=== PATIENT | female | born 1995 | race Caucasian/White ===

== ENCOUNTER 2021-10-20 11:12 | Emergency (ER) | payer MEDICAID, SELFPAY ==
[2021-10-20 11:16] VITALS: BP 149/91; PULSE 66; RESP 16; TEMP 36.2; O2SAT 97; BMI 48.5
--- NOTE | 2021-10-20 11:31 | ED.GENADULT ---
HPI - General Adult General Chief complaint: Animal Bite Stated complaint: Dog bite on lip Time Seen by Provider: 10/20/21 11:30 Source: patient Mode of arrival: ambulatory Limitations: no limitations History of Present Illness HPI narrative: Patient is a 26 year old female presenting to the emergency department today after being bit by a dog. Patient states that the dog is up to date on all of it's shots. Patient states that she is not up to date on her tetanus shot. Patient states that she was bit on the lower lip and the left eyebrow. Patient denies any dizziness, lightheadedness, abdominal pain, nausea, vomiting, fever, chills, blurry vision, double vision, loss of vision, chest pain, difficulty breathing, shortness of breath, back pain, night sweats, pain with urination, increased urinary frequency, increased urinary urgency, blood in her urine or stool, syncope or a near syncopal episode, bowel incontinence, bladder incontinence, bowel retention, bladder retention, or any other complaints at this time. Onset (ago): hour(s) Location: face Radiation: non-radiation Severity: mild Severity scale (1-10): 1 Relieving factors: none Exacerbating factors: none Associated symptoms: denies other symptoms Treatments prior to arrival: none Related Data Previous Rx's Medication Instructions Recorded doxycycline hyclate 100 mg tablet 100 mg PO BID 7 days #14 tabs 10/20/21 Allergies Allergy/AdvReac Type Severity Reaction Status Date / Time cat dander [CAT] Allergy Unknown ITCHY Verified 10/20/21 11:18 EYES/THROAT/RASH honey [HONEY] Allergy Unknown ITCHY Verified 10/20/21 11:18 THROAT SEASONAL ALLERGIES Allergy Unknown CONGESTION/RUNNY Uncoded 10/27/19 16:32 NOSE Review of Systems Constitutional: Constitutional: Reports no additional constitutional complaints, Denies chills, Denies fever(s) and Denies night sweats Eyes: Eyes: Reports no additional eye complaints, Denies blurry vision, Denies change in vision, Denies diplopia, Denies eye discharge, Denies loss of vision and Denies eye pain ENT: Denies dizziness Comments: lower lip injury, left eyebrow injury Cardiovascular: Cardiovascular: Reports no additional cardiovascular complaints, Denies chest pain, Denies lightheadedness, Denies Loss of Consciousness and Denies dyspnea Respiratory: Respiratory: Reports no additional respiratory complaints and Denies dyspnea Gastrointestinal: Gastrointestinal: Reports no additional gastrointestinal complaints, Denies abdominal pain, Denies melena, Denies hematochezia, Denies change in bowel habits and Denies change in stool character Genitourinary: Genitourinary: Denies hematuria, Denies urinary frequency, Denies dysuria, Denies urinary incontinence, Denies urinary hesitancy and Denies urinary urgency Musculoskeletal: Musculoskeletal: Reports no additional musculoskeletal complaints, Denies numbness and Denies tingling Neurologic: Denies dizziness, Denies loss of vision, Denies numbness and Denies tingling Psychiatric: Psychiatric: Reports no additional psychiatric complaints Endocrine: Endocrine: Reports no additional endocrine complaints Hematologic/Lymphatic: Hematologic/Lymphatic: Reports no additional hematologic/lymphatic complaints Allergic/Immunologic: Allergic/Immunologic: Reports no additional allergic/immunologic complaints PMFSH Past Medical History Attestation statement: The following information was validated with the patient. Source: old records reviewed Social History Social History Advance Directives: Yes Advance Directives Information Provided: Yes Advance Directives on File: No Physical Exam ED Vital Signs: Vital Signs - 24 hr 10/20/21 11:16 Temperature 97.1 F Pulse Rate 66 Respiratory Rate 16 Blood Pressure 149/91 H Pulse Oximetry 97 Oxygen Delivery Method Room Air BMI result Body Mass Index 48.5 Const General: cooperative, no acute distress, alert and awake Nutritional Appearance: well nourished Orientation/consciousness: patient oriented x3 Limitations: no limitations HENMT Head: Yes normal to inspection and Yes atraumatic Ears: hearing grossly normal bilaterally and external ears normal General nose exam: Normal external nose present, no nasal discharge noted and no epistaxis Face and sinus: Yes normal facial exam, No abrasion and No laceration Mouth: Normal oral and palatal mucosa present, no drooling and no muffled voice Eyes General: appearance normal, both eyes and all related structures Periorbital: periorbital findings normal Eyelids: Yes eyelids normal Conjunctivae: conjunctivae normal Pupils: Equal, round and reactive pupils present EOM: EOMs intact bilaterally Neck Neck: Yes normal visual inspection, Yes full ROM and Yes no lymphadenopathy Chest Chest palpation & inspection: normal inspection of the chest Resp Effort & Inspection: normal respiratory effort and able to speak in complete sentences Auscultation: clear to auscultation bilaterally Cardio Rate: regular rate Rhythm: regular rhythm GI Inspection: Yes normal to inspection Skin Other: very small laceration to the right side of the lower lip that does go through to the inner lip, no gaping area, small abrasion to left lateral eyebrow Neuro General: patient oriented x3 and moves all extremities Cranial nerves: Yes Equal, round and reactive pupils present Cognition (Neuro): normal cognition Motor exam (neuro): 5/5 motor strength present throughout Sensory Exam: Normal double simultaneous stimulation for sensation Coordination: [id number] test normal Extrem General: Yes normal to inspection, Yes full ROM and Yes capillary refill normal Psych Appearance: grossly normal Mental Status: mental status grossly normal Affect: normal affect Attitude: cooperative Thought process: Normal thought process present Thought content: Normal thought content present Insight: Good insight present (Psych) Medical Decision Making MDM Narrative Medical decision making narrative: Patient is a 26 year old female presenting to the emergency department today with a dog bite. Patient's physical exam showed a very small through puncture to the right lower lip with no gaping areas, and a small abrasion to the left eyebrow. I explained my physical exam findings to the patient. I answered all questions asked by the patient. Patient received a tetanus booster. I stressed the importance of the patient taking her medication as prescribed. I stressed the importance of the patient following up with her primary care provider. I stressed the importance of the patient returning to the emergency department immediately if her symptoms were to worsen or if she were to develop any dizziness, shortness of breath, difficulty breathing, chest pain, blurry vision, loss of vision, nausea, vomiting, abdominal pain, fever, chills, back pain, or any other complaints. Patient verbalized agreement and understanding with this treatment plan and discharge. Medical Records Medical records reviewed: Yes I reviewed the patient's medical records. Discharge Plan Discharge Clinical Impression: Dog bite Patient Disposition: Home, Self-Care Instructions: Animal Bite (ED) Additional Instructions: Follow up with your primary care provider. Return to the emergency department immediately if your symptoms worsen or if you develop any dizziness, shortness of breath, difficulty breathing, chest pain, blurry vision, loss of vision, nausea, vomiting, abdominal pain, fever, chills, back pain, or any other complaints. Prescriptions: New doxycycline hyclate 100 mg tablet 100 mg PO BID 7 Days Qty: 14 0RF Referrals: [facility] [place] Family Medicine [Provider Group] (Call to establish and follow up with a primary care provider. If you already have a primary care provider, please follow up with them. ) [facility] Primary Care, [facility] [Provider Group] (Call to establish and follow up with a primary care provider. If you already have a primary care provider, please follow up with them. ) [facility] (Call to establish and follow up with a primary care provider. If you already have a primary care provider, please follow up with them. ) [facility] [Physician] - (Call to establish and follow up with a primary care provider. If you already have a primary care provider, please follow up with them. ) Interventions: ED Discharge Assessment Last Done: 10/20/21 12:03 Print Language: Ukrainian
[2021-10-20] MEDS: Diphth,Pertus(ACell),Tet Adult 0.5 ML SYRINGE IM (11:46)
== END 2021-10-20 12:05 | disposition home or self-care (01) ==
PROVIDERS: Emergency Provider Emergency Medicine
DX: S00.571A Other superficial bite of lip, initial encounter (principal); S00.81XA Abrasion of other part of head, initial encounter; R51.9 Headache, unspecified; W54.0XXA Bitten by dog, initial encounter; Y93.9 Activity, unspecified; Y92.9 Unspecified place or not applicable; Y99.9 Unspecified external cause status
CPT/HCPCS: 90471; 90715; 99283; 99284

== ENCOUNTER 2024-01-14 14:54 | Emergency (ER) | payer OTHER, SELFPAY ==
--- NOTE | ~2024-01-14 | XR_ITS ---
EXAMINATION: XR LUMBOSACRAL SPINE CLINICAL INFORMATION: midline lumbar pain COMPARISON: None available. TECHNIQUE: Three views of the lumbosacral spine. FINDINGS: There are 5 nonrib-bearing lumbar vertebrae. No acute fracture. Spinal alignment is anatomic. Vertebral body heights are preserved. Intervertebral disc space heights are preserved. Paraspinal soft tissue is normal in appearance. Sacroiliac joints are intact. XR/XR lumbar spine 2-3V IMPRESSION: No acute osseous lumbar spine abnormality. No significant degenerative disease. Electronically signed by: Lalito Munson DO 01/14/2024 05:24 PM [facility] [place]
[2024-01-14 15:13] VITALS: BP 151/100; PULSE 85; RESP 18; TEMP 37.2; O2SAT 95; BMI 46.1
--- NOTE | 2024-01-14 15:17 | ED_ITS ---
HPI - Back Pain/Injury General Chief Complaint: Back Pain/Injury Stated Complaint: Lower back pain Time Seen by Provider: 01/14/24 19:40 Source: patient Mode of arrival: ambulatory Limitations: no limitations History of Present Illness ED Provider: Candie Warren NP HPI Narrative: Patient is a 28-year-old female who presents emergency department for evaluation. She reports that she awoke this morning with slight discomfort to her mid lower back that was radiating towards the sides. She drove to work and she felt some increase in her pain. While sitting down at work for a prolonged. She felt her pain was getting worse. She ultimately went home and laid down she took an aspirin and applied a heating pad but continued to have progression of her pain. Denies recent precipitating injury, fevers, chills, burning with micturition, urinary frequency/urgency/hesitancy, bladder or bowel dysfunction, numbness or tingling of the perineum or bilateral legs. Denies any recent surgical procedures, any known immune compromising conditions, personal history of cancer, or IV drug usage. She denies possibility for . MD elicited complaint: back pain Related Data Previous Rx's ?Medication ?Instructions ?Recorded doxycycline hyclate 100 mg tablet 100 mg PO BID 7 days #14 tabs 10/20/21 cyclobenzaprine 5 mg tablet 5 mg PO TID PRN muscle spasm #14 01/14/24 tabs ibuprofen 600 mg tablet 600 mg PO Q8H PRN pain #30 tabs 01/14/24 Allergies Allergy/AdvReac Type Severity Reaction Status Date / Time cat dander [CAT] Allergy Unknown ITCHY Verified 01/14/24 15:14 EYES/THROAT/RASH honey [HONEY] Allergy Unknown ITCHY Verified 01/14/24 15:14 THROAT SEASONAL ALLERGIES Allergy Unknown CONGESTION/RUNNY Uncoded 10/27/19 16:32 NOSE Review of Systems Review of Systems: Yes all other systems are reviewed and are negative PMFSH Past Medical History Attestation statement: The following information was validated with the patient. Source: old records reviewed Social History Social History Smoked in Last 30 Days: No Use of substances other than those prescribed or required for medical reasons: No Advance Directives: No Advance Directives Information Provided: No Do you have a plan to hurt others: No Plan Patient : No Physical Exam Vital Signs: Vital Signs: Last Vital Signs Temp 98.6 F 01/14/24 21:34 Pulse 85 01/14/24 21:34 Resp 16 01/14/24 21:34 BP 123/79 01/14/24 21:34 Pulse Ox 97 01/14/24 21:34 O2 Del Method Room Air 01/14/24 21:34 BMI result Body Mass Index 46.1 Appearance: Alert.?Oriented to person, place and time. No acute distress.?Normal affect. Eyes: Pupils equal, round and reactive to light.? ENT: Pharynx normal.?? Neck: Normal inspection.? Neck supple.?? CVS: Heart sounds normal. Normal heart rate and rhythm.? Pulses normal; bilateral radial pulses 2+, bilateral posterior tibial/dorsalis pedis pulses 2+.? Respiratory: No respiratory distress.? Lung sounds clear to auscultation bilaterally?? Abdomen: Soft and non-tender. Normoactive bowel sounds. No pulsatile mass.?? Skin: Skin warm and dry.? Normal skin color.? Normal skin turgor.?? Extremities: No lower extremity edema.? No calf ttp? Back: + mild paraspinal muscular tenderness from lumbar region to coccyx. No CVA tenderness. No midline spinal tenderness, step-off's, or deformity. Full ROM intact in bilateral lower extremities. Straight leg test negative on right; Straight leg test negative on left. No rashes, lesions, areas of induration or fluctuance, or signs of infection noted., Neuro: Moves all extremities spontaneously. 5/5 strength in hip extension/flexion, abduction, adduction. Sensation to light touch intact bilaterally. Patellar and Achilles reflex 2+ bilaterally. No ataxia, gait normal and steady.. No focal neuro deficits. Course Course Course Narrative: This is a Rapid Medical Examination (RME) performed by Bob Sewell PA-C in triage. Full HPI, ROS, assessment and treatment plan per primary provider in the Main ED. 28 yo female here for eval of mid lumbar spine pain since waking this morning. initially noted a soreness on waking which worsened when she went to sit in her car. denies urinary symptoms. LMP 1 mo ago - cannot recall the exact date. denies blunt injury or trauma. denies saddle anesthesia, bowel or bladder incontinence or retention. + no midline or paraspinal muscle tenderness. standing in triage, does not wish to sit d/t pain. no CVAT Plan: UA, u preg, xr Medications Administered Discontinued Medications Generic Name Dose Route Start Last Admin Trade Name Viviana PRN Reason Stop Dose Admin Ketorolac Tromethamine 15 mg 01/14/24 20:47 01/14/24 20:53 Ketorolac Tromethamine 15 Mg/Ml Vial IM 01/14/24 20:48 15 mg ONCE ONE Administration Medical Decision Making Medical Decision Making [facility] Narrative: Patient is a 28-year-old female who presents emergency department for evaluation of atraumatic back pain that exacerbates with prolonged sitting in particular movements. No precipitating injury. She is overall well-appearing nontoxic and afebrile. Has no midline tenderness upon palpation. XR was obtained prior to my assumption of care no evidence of acute osseous abnormality. At this time suspect that Pain is most consistent with muscular pain, although cannot completely exclude herniated disc. On neurological exam there are no deficits. Exam findings not consistent with cauda equina syndrome. No recent fevers, unintentional weight loss, history of IVDA, high-risk past medical history, immunosuppression, recent surgery or lumbar puncture to suggest spinal infection, epidural abscess, malignancy. Not consistent with AAA or dissection. No genitourinary symptoms, afebrile, no CVA tenderness, unlikely urinary tract infection, pyelonephritis, renal colic. No history of nephrolithiasis/ureteral calculi. hCG is negative not consistent with ectopic . Plan for discharge home with conservative measures, high-dose anti-inflammatory, prescription for cyclobenzaprine to use as needed for pain unrelieved by the aforementioned modalities, and follow-up with primary care provider, and patient agreed with plan. Differential Diagnosis Differential Diagnoses: The differential diagnosis associated with the presentation includes ( see narrative above) Admission/Observation Consideration of admission/observation: Escalation of care including admission/observation considered ( see narrative above) Lab Data MDM Lab Attestation statement: I reviewed the patient's lab results. (Urinalysis without evidence urinary tract infection. HCG negative.) Labs: Lab Results 01/14/24 Range/Units 15:32 Urine Color Dark Yellow Urine Appearance Cloudy Urine pH 5.5 (5.0-9.0) Ur Specific [place] >= 1.030 H (1.005-1.025) Urine Protein Trace (Neg-Trace) mg/dL Urine Glucose (UA) Negative (Negative) mg/dL Urine Ketones 15 (Negative) mg/dL Urine Blood Negative (Negative) Urine Nitrite Negative (Negative) Ur Leukocyte Esterase Negative (Negative) Urine Test NEGATIVE (NEGATIVE) Independent Interpretation I performed an independent interpretation of an: Plain X-Ray (No acute fracture) Radiology Impression Discussion of test interpretation with radiology: I have reviewed the radiologist's reading. Radiologist Impression: XR/XR lumbar spine 2-3V IMPRESSION: No acute osseous lumbar spine abnormality. No significant degenerative disease. Tests considered The following testing was considered but not selected: See narrative above Prescription Management I considered prescription management with: Pain Medication Discharge Plan Discharge Clinical Impression: Strain of lumbar region Patient Disposition: Home, Self-Care Instructions: Acute Low Back Pain (ED), R.I.C.E. Treatment (ED), Lower Back Exercises (ED) Additional Instructions: You can take ibuprofen 200 mg, 3 tablets (600mg) every 6-8 hours as needed for pain, in addition to Tylenol 500 mg, 2 tablets (1,000mg) every 4-6 hours as needed for pain, but not to exceed 3 doses daily (3,000mg).? For pain that is unrelieved by either the above you may trialed a muscle relaxant. Cyclobenzaprine/Flexeril. This medication may make you drowsy. You should not drive, drink alcohol, or work while taking this medication. Engage in gentle stretching exercises as provided in the handouts, refrain from prolonged sitting or standing as this may worsen the pain, apply ice/heat to the area, refrain from any excessive exercise/lifting. As discussed, follow-up with your primary care provider for any persistent symptoms. Return to emergency department any new or worsening symptoms or concerns. Prescriptions: New ibuprofen 600 mg tablet 600 mg PO Q8H PRN (Reason: pain) Qty: 30 0RF cyclobenzaprine 5 mg tablet 5 mg PO TID PRN (Reason: muscle spasm) Qty: 14 0RF No Action doxycycline hyclate 100 mg tablet 100 mg PO BID 7 Days Qty: 14 0RF Referrals: Physician,None [Primary Care Provider] - Stand Alone Forms: Work/School Release Interventions: ED Discharge Assessment Last Done: 01/14/24 21:34 Discharge Date/Time: 01/14/24 21:34 Print Language: Citizen Of [place]
[2024-01-14 15:58] LABS: Appearance Urine Cloudy; Color Urine Dark Yellow; Glucose Urine UA Negative (Negative); Leukocyte Esterase Urine Negative (Negative); Nitrite Urine Negative (Negative); PH 5.5 (5.0-9.0); Specific Gravity - Urine >= 1.030 (1.005-1.025); Urine Blood Negative (Negative); Urine Ketones 15 mg/dL (Negative); Urine Protein Trace mg/dL (Neg-Trace)
[2024-01-14 15:59] LABS: UPreg QC Valid YES; Urine Pregnancy NEGATIVE (NEGATIVE)
[2024-01-14 20:25] VITALS: BP 123/79; PULSE 85; RESP 16; TEMP 37; O2SAT 97
[2024-01-14] MEDS: Ketorolac Tromethamine 15 MG/ML VIAL IM (20:53)
--- NOTE | 2024-01-14 20:55 | PC.NURSE ---
pt medicated according to apr. pt tolerated well verbalized no new needs at this time
[2024-01-14 21:34] VITALS: BP 123/79; PULSE 85; RESP 16; TEMP 37; O2SAT 97
== END 2024-01-14 21:34 | disposition home or self-care (01) ==
PROVIDERS: Physician Assistant Medical; Emergency Provider Emergency Medicine
DX: M54.50 Low back pain, unspecified (principal); Z79.899 Other long term (current) drug therapy
CPT/HCPCS: 72100; 81003; 81025; 96372; 99284; J1885